=== PATIENT | male | born 1980 | race Caucasian/White ===

== ENCOUNTER 2020-03-19 08:00 | Outpatient (CLI) | payer OTHER | END 2020-03-19 08:13 | disposition home or self-care (01) | LOC: LAB 08:00 | DX: Z20.828 Contact with and (suspected) exposure to other viral communicable diseases (principal) ==

== ENCOUNTER → 2020-03-19 | Outpatient (CLI) | payer OTHER | END | disposition home or self-care (01) | LOC: ASH CLINIC 08:31 | DX: Z23 Encounter for immunization (principal); U07.1 COVID-19 ==